=== PATIENT | male | born 1945 | race Caucasian/White ===

== ENCOUNTER 2016-07-02 10:05 | Inpatient (IN) | payer MEDICARE ==
[2016-07-02] MEDS ORDERED: Tuberculin 5 TU/0.1 mL UD ID ONE ×2 (10:27→10:32)
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
[2016-07-02 10:57] LABS: MEAN PLATELET VOLUME 8.6 fl
--- NOTE | 2016-07-02 11:03 | Diagnostic Imaging Report ---
Portable chest x-ray HISTORY: Shortness of breath The overall heart size is difficult to assess with portable technique. Density seen in the left lower hemithorax consistent with a pleural effusion. No definite focal pulmonary parenchymal processes are seen. Atherosclerotic calcination seen in the aortic arch. IMPRESSION: 1. Findings consistent with a left pleural effusion 2. No definite focal pulmonary parenchymal processes
[2016-07-02 11:08] LABS: ALB/GLOB RATIO 0.8 (1.0-1.8); ALKALINE PHOSPHATASE 90 U/L (34-104); ANION GAP 6.5 (7.0-16.0); BILIRUBIN,TOTAL 1.3 mg/dL (0.3-1.0); BUN - UREA NITROGEN 27 mg/dL (7-25); BUN/CREATININE RATIO 33.8; CALCIUM SERUM 8.6 mg/dL (8.6-10.3); CHLORIDE 108 mEq/L (98-107); CREATININE - SERUM 0.8 mg/dL (0.7-1.3); GLUCOSE 70 mg/dL (70-105); POTASSIUM SERUM 3.5 mEq/L (3.5-5.1); PROTHROMBIN TIME (TEST) 10.4 SECONDS (9.5-11.5); SGOT 54 U/L (13-39); SGPT/ALT 54 U/L (7-52); SODIUM SERUM 142 mEq/L (136-145)
[2016-07-02 11:10] LABS: CHOLESTEROL 224 mg/dL (<200); RED BLOOD COUNT 3.71 Mil/cmm (3.80-5.80); TRIGLYCERIDES 91 mg/dL (<150); WHITE BLOOD COUNT 6.7 Th/cmm (4.8-10.8)
[2016-07-02 11:11] LABS: HEMATOCRIT 33.8 % (39.0-49.0); HEMOGLOBIN 11.6 gm/dL (12.6-17.4); MEAN CELL VOLUME 91.2 fl (80-99); MEAN CORPUSCULAR HEMOGLOBIN 31.3 pg (27.0-31.0); MEAN CORPUSCULAR HGB CONC 34.3 pg (28.0-36.0); PLATELET COUNT 160 Th/cmm (150-400); RED CELL DISTRIBUTION WIDTH 17.9 % (11.5-20.0)
[2016-07-02 11:33] LABS: ANISOCYTOSIS 1+; EOSINOPHIL 1 % (0-5); NEUTROPHILS 83 % (40-80); PLATELET ESTIMATE ADEQUATE (NORMAL); PLATELET MORPHOLOGY NORMAL (NORMAL); TOTAL CELLS COUNTED 100
[2016-07-02] MEDS ORDERED: D5-0.9NS w/KCL 20mEq 1,000 ML IV ONE (12:16)
[2016-07-02] MEDS ORDERED: Fleet Enema 135 mL RC PRN (13:35)
[2016-07-02] MEDS ORDERED: Magnesium Hydroxide (MOM) 30 mL UDC PO PRN (13:35)
[2016-07-02] MEDS ORDERED: 0.9% NS w/20 mEq KCL 1,000 ML IV ONE (15:25)
[2016-07-02] MEDS ORDERED: Non-Formulary Item 1 EA (Apixaban [Eliquis] 5 MG) PO SCH (17:00)
[2016-07-02] MEDS ORDERED: Pneumococcal Vaccine 0.5 mL Vial IM ONE (18:17)
--- NOTE | 2016-07-02 20:21 | History & Physical ---
CHIEF COMPLAINT: Altered level of consciousness. HISTORY OF PRESENT ILLNESS: The patient is a 71-year-old male with long history of hypothyroidism, legally blind and possible adrenal insufficiency who presented to the Emergency Room with altered level of consciousness. The patient was evaluated by the ER physician. Initial workup significant for pleural effusion, possible AFib, admitted to the telemetry and started on IV fluid. We will resume his medication and monitor significantly for sinus. The patient is a poor historian. No chest pain, no shortness of breath, no nausea, no vomiting, no fever and no chills. PAST MEDICAL HISTORY: Significant for hypothyroidism, dementia and legally blind. PAST SURGICAL HISTORY: No recent surgery. ALLERGIES: None. MEDICATIONS: Follow admission reconciliation. SOCIAL HISTORY: No smoking, alcohol or drug use. FAMILY HISTORY: Noncontributory. REVIEW OF SYSTEMS: ____ SYSTEM: No history of chronic renal disorder. CARDIOVASCULAR SYSTEM: No coronary artery disease. ENDOCRINE SYSTEM: He has history of hypothyroidism. GASTROINTESTINAL SYSTEM: Upper or lower GI bleed. NEUROLOGICAL SYSTEM: He has history of dementia, legally blind. PHYSICAL EXAMINATION: GENERAL: He is arousable. VITAL SIGNS: Temperature is 96.3, heart rate 56 and blood pressure 104/48. HEENT: Normocephalic, legally blind. NECK: Supple. Negative for lymphadenopathy, JVD or bruit. CHEST: ____ bilaterally normal. No rales, rhonchi or wheezing. HEART: S1 and S2 normal. No gallop. ABDOMEN: Soft. Bowel sounds positive. EXTREMITIES: No edema. NEUROLOGIC: He is arousable, not fully oriented. LABORATORY DATA: WBC 6.7, hemoglobin 11.6, hematocrit 33.8 and platelets 160. Sodium 142, potassium 3.5, BUN 27, creatinine 0.8, total bilirubin 1.3 and albumin 2.6. ASSESSMENT: 1. Altered level of consciousness. 2. Hypothyroidism. 3. Possible adrenal insufficiency. 4. Dementia. 5. Anemia. 6. Mild malnutrition. PLAN: The patient admitted to the hospital under Dr. Neal's service, started on IV fluids, cardiac diet, psych evaluation ordered. The patient is a full code. JOB# [id number]
--- NOTE | 2016-07-02 21:56 | Admit Criteria Form ---
Admit Criteria Forms - Admit Criteria Diagnosis: MENTAL STATUS CHANGE Clinical Indications for Inpatient Care (Place 'X' for any and all applicable criteria): Ongoing inpatient care may be needed for ANY ONE of the following(1)(2)(3)(5)(6) : [ ]I. Suspected serious etiology (eg, medical disorder, [employer] event) of mental status change [ ]II. Danger to self or others not manageable at lower level of care [ ]III. Grave disability (eg, inability to perform self care necessary at lower level of care) [ X]IV. Agitation or inappropriate behavior interfering with care for primary condition (eg, attempting to discontinue lines or drains prematurely, unable to cooperate with respiratory care) [ ]V. Delirium [A] [D][E] as described by ANY ONE of the following(26): [ ]a) Delirium due to alcohol or sedative [F] withdrawal [ ]b) Delirium of uncertain etiology that has not responded to appropriate empiric treatment [ ]c) Delirium that prevents performance of a life-sustaining function (eg, feeding or hydrating oneself) [ ]. General contraindications and/or Inappropriate clinical situations for Observational Care in patients with Mental Status Change, when ANY ONE of the following is required: [ ]a) Prediction of prolongation of LOS based on ANY ONE of the following may be considered as a contraindication for observational care 2, 3, 4, 5, 6, 7, 8, 9, 10, 11 [ ]i) Age > 65 yrs. [ ]ii) Patient arriving by ambulance [ ]iii) Patient with high acuity [ ]iv) Patient requiring vital sign monitoring [ ]v) Patient on IV medication [ ]b) Systolic blood pressures 180mmHg 3,12 [ ]c) Patient with altered mental status including delirium and other alteration of consciousness, (3) [ ]d) Patient whose discharge disposition will be to a penitentiary home or rehabilitation home should not be managed in Emergency Department Observation Unit. CMS rule requires 3 days hospital stay before such placement.3,13 [ ]e) Patient with failure to thrive due to broad array of etiologies 3,16,17 [ ]f) Inability to ambulate 3,14 Extended stay beyond goal length of stay for the primary condition may be needed until ALL of the following are present(3)(5): [ ]a) Underlying medical etiology of mental status change is absent, or has been established and adequately treated [ ]b) Danger to self or others is absent or manageable at lower level of care. [ ]c) Behavior crisis management, including physical or chemical restraints, is not required or available at lower level of car [ ]d) Substance or alcohol withdrawal is absent or manageable at lower level of care. [ ]e) Behavioral symptoms (eg, agitation, somnolence, inappropriate behavior) are absent, or are manageable at lower level of care. The original [facility] content created by [facility] has been revised. The portions of the content which have been revised are identified through the use of italic text or in bold, and [facility] has neither reviewed nor approved the modified material. All other unmodified content is copyright [facility]. Please see references footnoted in the original [facility] edition 2016 Admit Criteria Met?: Yes
[2016-07-02] MEDS: Enoxaparin 30 mg/0.3 mL 0.3mL Syr SUBQ SCH (22:29)
[2016-07-03 03:16] LABS: URINE BILIRUBIN NEGATIVE (NEGATIVE); URINE BLOOD MODERATE (NEGATIVE); URINE COLOR YELLOW; URINE GLUCOSE (UA) NEGATIVE (NEGATIVE); URINE KETONE NEGATIVE (NEGATIVE); URINE PH 7.5; URINE PROTEIN NEGATIVE (NEGATIVE)
[2016-07-03 03:17] LABS: URINE BACTERIA OCCASIONAL /hpf (NONE SEEN); URINE EPITHELIAL CELLS RARE /lpf (FEW); URINE RBC 25-50 /hpf (0-5); URINE WBC 0-2 /hpf (0-5)
[2016-07-03] MEDS ORDERED: Haloperidol Lactate 5 mg/mL 1mL Vial IM ONE (08:25)
[2016-07-03] MEDS ORDERED: Pneumococcal Vaccine 0.5 mL Vial IM ONE (09:00)
[2016-07-03] MEDS ORDERED: Influenza Vaccine 0.5 mL Syr IM ONE (09:00)
[2016-07-03] MEDS: Enoxaparin 30 mg/0.3 mL 0.3mL Syr SUBQ SCH ×2 (09:54→10:35)
[2016-07-03] MEDS: Levothyroxine 0.1 Mg Tab PO SCH ×2 (09:54→10:34)
--- NOTE | 2016-07-03 12:38 | Consultation ---
PSYCHIATRIC CONSULTATION AGE: 71. SEX: Male. PHYSICIAN: Dr. Neal. RECORDS CLERK: Dr. Zambrano. REASON FOR THE CONSULT: Agitation and irritability. HISTORY OF PRESENT ILLNESS: The patient is a 71-year-old male. The patient was admitted to the hospital and the patient has been agitated and irritable. The patient also has not been able to follow any directions and he is easily agitated and aggressive with the staff. The patient currently seems to be slightly calmer. The patient also is in angry mood at times. Also, personal hygiene was poor and disheveled. The patient's brother was present who gave me a lot of information about his condition. PAST PSYCHIATRIC HISTORY: The patient seems to have history of psychosis. PAST MEDICAL HISTORY: As per Dr. Neal. SOCIAL HISTORY: The patient is single, never and has no children. The patient has no known history of alcohol or drug use. ALLERGIES: No known allergies. MENTAL STATUS EXAM: The patient appears his stated age. Irritable mood. Anxious. Disheveled. Thought processes mainly goal directed. The patient denies any hallucinations or delusions. No suicidal or homicidal ideations. ASSESSMENT: PRIMARY DIAGNOSIS: Unspecified psychosis. TREATMENT PLAN AND RECOMMENDATIONS: We will continue to monitor his behavior. We will give Seroquel on a p.r.n. basis. We will follow up. Thanks to Dr. Neal and we will follow up with you. JOB# [id number]
--- NOTE | 2016-07-03 18:21 | Discharge Summary ---
FINAL DIAGNOSES: 1. Hypothyroidism 2. Adrenal insufficiency. 3. Dementia. 4. Mild anemia. 5. Mild malnutrition. REVIEW OF HISTORY: The patient is a 71-year-old male with long history of dementia, hypothyroidism and adrenal insufficiency, presented to the Emergency Room with altered level of consciousness, admitted to the hospital, Psych evaluation ordered and started on IV fluids. PHYSICAL EXAMINATION: CHEST: Clear to auscultation. ABDOMEN: Soft, bowel sounds positive. EXTREMITIES: No edema. LABORATORY DATA: White blood cells 6.7, hemoglobin 11.6, hematocrit 33.8. Sodium 142, potassium 3.5, BUN 27, creatinine 0.8. COURSE OF HOSPITALIZATION: During this hospitalization, the patient was seen by Dr. Zambrano and started on Seroquel 25 mg 3 times a day. On 07/03/2016, the patient was stable clinically and the family requested to take him home to [facility], where is going to live with his brother and follow up with the physician over there. DISPOSITION: The patient discharged home with his family to be followed up with primary care physician next week. CONDITION ON DISCHARGE: Stable. MEDICATIONS: Follow discharge reconciliation. JOB# [id number]
== END 2016-07-03 13:00 | disposition home or self-care (01) | DRG 884 ==
LOC: ER 10:05 → TELE 17:00
PROVIDERS: ADMIT Family Medicine; ATTEND Family Medicine
DX: F03.90 Unspecified dementia, unspecified severity, without behavioral disturbance, psychotic disturbance, mood disturbance, and anxiety (principal); J90 Pleural effusion, not elsewhere classified; E27.40 Unspecified adrenocortical insufficiency; I82.622 Acute embolism and thrombosis of deep veins of left upper extremity; E44.1 Mild protein-calorie malnutrition; E11.9 Type 2 diabetes mellitus without complications; D64.9 Anemia, unspecified; I48.91 Unspecified atrial fibrillation; R00.1 Bradycardia, unspecified; H54.40 Blindness, one eye, unspecified eye; E03.9 Hypothyroidism, unspecified; J44.9 Chronic obstructive pulmonary disease, unspecified; F31.9 Bipolar disorder, unspecified; F29 Unspecified psychosis not due to a substance or known physiological condition; Z68.25 Body mass index [BMI] 25.0-25.9, adult
CPT/HCPCS: 36415-UA; 71010-TC; 80053-TC; 80061-TC; 81001-TC; 82948-90; 84443-TC; 84484-TC; 85007-TC; 85027-TC; 85610-TC; 86592-TC; 93005; J1650; J3480; Z7610